=== PATIENT | female | born 1950 | race Two or more races ===

== ENCOUNTER 2019-02-23 19:39 | Emergency (ER) | payer OTHER ==
[~2019-02-23] VITALS: Ht 157.5 cm; Wt 49.9 kg
[2019-02-23 19:46] VITALS: BP 154/86
--- NOTE | 2019-02-23 19:53 | NUR ---
PT AMBULATED TO BED 8 WITH SON
--- NOTE | 2019-02-23 19:53 | NUR ---
68 Y/O FEMALE BIB C/O COUGH. PATIENT WAS REFERRED TO BY URGENT CARE. PATIENT STATES, "I HAVE THIS REAL BAD COUGH; IT'S REALLY DRY. I HAVEPNEUMONIA". LUNG SOUNDS CLEAR DIMINISHED ON LUNG WILD. NO LABORED BREATHING NOTED AT THIS TIME. ERMD MADE AWARE. SIDE RAILSX1. PLACED ON PULSE OXIMETER. 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
--- NOTE | 2019-02-23 20:23 | NUR ---
XRAY AT BEDSIDE
--- NOTE | 2019-02-23 21:11 | NUR ---
Dr. Esteban examining patient.
[2019-02-23 21:48] VITALS: BP 154/86
--- NOTE | 2019-02-23 21:49 | NUR ---
Patient discharged with v/s stable. Written and verbal after care instructions given and explained. Patient alert, oriented and verbalized understanding of instructions. Ambulatory with steady gait. All questions addressed prior to discharge. ID band removed. Patient advised to follow up with PMD. Rx of promethazine given. Patient educated on indication of medication including possible reaction and side effects. Opportunity to ask questions provided and answered.
== END 2019-02-23 21:49 | disposition home or self-care (01) ==
LOC: MED 19:39
DX: R05 Cough (principal); R06.02 Shortness of breath
CPT/HCPCS: 71045; 99283; Q0092

== ENCOUNTER 2021-02-19 11:28 | Inpatient (IN) | payer OTHER, SELFPAY ==
[~2021-02-19] VITALS: Ht 154.9 cm; Wt 57.6 kg
--- NOTE | 2021-02-19 11:28 | NUR ---
1122 BIBA ALS TO ER BED 1
[2021-02-19 11:29] VITALS: BP 124/65
[2021-02-19] MEDS ORDERED: NACL 0.9% 1,000 ML IV SCH (11:35)
[2021-02-19] MEDS ORDERED: cefTRIAXone 1,000 MG in DEXT 5% MINI-BAG PLUS 50 ML IV ONE (11:35)
[2021-02-19] MEDS ORDERED: cefTRIAXone 1,000 MG VIAL ONE (11:38)
--- NOTE | 2021-02-19 11:38 | NUR ---
70 Y/O F BIBA FROM HOME, C/O WEAKNESS, SOB FOR PAST 2 DAYS. PT TESTED POSITIVE FOR COVID 2 DAYS AGO, ALSO TESTED POSITIVE. FAMILY EXPOSED AT HOME. DENIES N/V/D; SKIN IS PINK/WARM/DRY; AAOX4, AMBULATES WITH ASSIST; LUNGS WHEEZING BL; HR EVEN AND TACHY; PATIENT STATES PAIN OF 0/10 AT THIS TIME; PATIENT POSITIONED FOR COMFORT; HOB ELEVATED; BEDRAILS UP X2; BED DOWN. ER MD MADE AWARE OF PT STATUS. PMH: COPD, CA MULTIPLE MYELOMA NKA MED: ALBUTEROL
--- NOTE | 2021-02-19 12:02 | NUR ---
X-Ray at bedside.
[2021-02-19 12:05] LABS: HEMOGLOBIN 14.1 g/dL (12.0-16.0); LYMPHOCYTES # (AUTO) 0.1 K/uL (2.5-16.5); MEAN CORPUSCULAR HEMOGLOBIN 32 pg (27-31); MEAN CORPUSCULAR HGB CONC 34 g/dL (33-37); MEAN CORPUSCULAR VOLUME 93.8 fL (80-94); MONOCYTES # (AUTO) 0.1 K/uL (0.8-1.0); NEUTROPHILS # (AUTO) 2.2 K/uL (1.8-7.7); NEUTROPHILS % (AUTO) 90.8 % (42.2-75.2); WHITE BLOOD COUNT (AUTO) 2.4 K/uL (4.8-10.8)
[2021-02-19 12:14] LABS: BASOPHILS % (AUTO) 0.3 % (0.0-2.0); HEMATOCRIT 41.8 % (36-48); LYMPHOCYTES % (AUTO) 5.7 % (20.5-51.1); MONOCYTES % (AUTO) 3.2 % (1.7-9.3); PLATELET COUNT (AUTO) 207 K/uL (140-450); RED BLOOD CELL COUNT(AUTO) 4.45 MIL/uL (4.20-5.40); RED CELL DISTRIBUTION WIDTH 16.7 % (11.6-13.7)
--- NOTE | 2021-02-19 12:20 | NUR ---
NOVEL AND MARA SWABBED AT THIS TIME
[2021-02-19 12:24] LABS: POTASSIUM 3.5 mmol/L (3.5-5.1)
[2021-02-19 12:25] LABS: ALBUMIN 2.9 g/dL (3.4-5.0); ANION GAP 12.9 (8-16); CARBON DIOXIDE 26.6 mmol/L (21-32); CREATININE 0.8 mg/dL (0.6-1.3); TOTAL BILIRUBIN 0.6 mg/dL (0.0-1.0)
--- NOTE | 2021-02-19 12:48 | NUR ---
DR. BHARDWAJ AND DALTON DUDLEY BEDSIDE SPEAKING WITH PT AND PT FAMILY
[2021-02-19] MEDS ORDERED: UMEC1POW IH (13:24)
[2021-02-19] MEDS ORDERED: POMA2CAP PO (13:24)
[2021-02-19] MEDS ORDERED: DEXA4TAB5 PO (13:24)
[2021-02-19] MEDS ORDERED: DARA15VI SQ (13:24)
[2021-02-19] MEDS ORDERED: [UNRECOGNIZED DRUG - REMARK] (13:36)
[2021-02-19] MEDS ORDERED: MAG SULF 2000 MG/WATER PREMIX 50 ML IV PRN (15:05)
[2021-02-19] MEDS ORDERED: POTASSIUM CHLORIDE 10 MEQ TABER PO PRN (15:05)
[2021-02-19] MEDS ORDERED: MAGNESIUM OXIDE 400 MG TAB PO PRN (15:05)
[2021-02-19] MEDS ORDERED: ONDANSETRON 4 MG/2 ML VIAL IVP PRN (15:05)
[2021-02-19] MEDS ORDERED: KCL 20 MEQ/WATER INJ PREMIX 200 ML IV PRN (15:05)
[2021-02-19] MEDS ORDERED: remdesivir COMMUNICATION ORDER 1 EA MISC MC PRN (15:10)
--- NOTE | 2021-02-19 15:41 | NUR ---
RECEIVED REPORT FROM ER NURSE, PATIENT 70 FEMALE WAS ADMITTED DUE TO SHORTNESS OF BREATH, DX: COVID 19 PNEUMONIA, PATIENT HAVE MULTIPLE MYELOMA ON HISTORY AND SHE IS UNDER CHEMOTHERAPY , PATIENT IS ON MODIFIED CODE STATUS ANS HAS NO KNOWN ALLERGY, SHE IS RECEIVING O2 NASAL CANULA AND HER SAT 100%. WAITING TO RECEIVE THE PATIENT
[2021-02-19] MEDS ORDERED: remdesivir CLINICAL MONITORING 1 EA MISC MC PRN (15:45)
--- NOTE | 2021-02-19 15:57 | NUR ---
Patient will be admitted to care of KATHIE NICHOLSON. Admited to TELEMETRY. Will go to room 118A. Belongings list completed. Report to RAUL DUDLEY.
[2021-02-19] MEDS ORDERED: AZITHROMYCIN 500 MG in DEXTROSE 5% 250 ML IV SCH (16:00)
--- NOTE | 2021-02-19 16:21 | NUR ---
RECEIVED PATIENT FROM ER , PATIENT 70 FEMALE WAS ADMITTED DUE TO SHORTNESS OF BREATH, DX: COVID 19 PNEUMONIA, PATIENT HAVE MULTIPLE MYELOMA ON HISTORY AND SHE IS UNDER CHEMOTHERAPY , HAS NO KNOWN ALLERGY, SHE IS RECEIVING O2 NASAL CANULA AND HER SAT 97%. PATIENT IS AX4, NO SOD NOTED, BREATHING EVEN UNLABORED, PATIENT HAS AN IV ON RIGHT AC. PATIENT CAN AMBULATE, SKIN INTACT, ALL SAFETY MEASURERS ON PLACE CALLS LIGHT WITHIN REACH
[2021-02-19] MEDS: DEXAMETHASONE 10 MG/ML VIAL IVP SCH (16:47)
[2021-02-19 17:00] VITALS: BP 116/64
[2021-02-19] MEDS ORDERED: REMDESIVIR. 200 MG in NACL 0.9% 100 ML IV SCH (17:00)
--- NOTE | 2021-02-19 18:48 | NUR ---
PATIENT IN BED NO COMPLAINS NO SOD NOTED, WATCHING HIS PHONE ALL SAFETY MEASURES IN PLACE , CALLS LIGHT WITHIN REACH
--- NOTE | 2021-02-19 19:20 | NUR ---
REPORT GIVEN TO MARINE SAFETY OFFICER NURSSE
[2021-02-19 20:00] VITALS: BP 116/56
[2021-02-19] MEDS: AZITHROMYCIN 500 MG in DEXTROSE 5% 250 ML IV SCH (21:54)
[2021-02-20] VITALS: BP 99/44
[2021-02-20 04:00] VITALS: BP 108/52
[2021-02-20 06:50] LABS: HEMATOCRIT 36.6 % (36-48); HEMOGLOBIN 12.5 g/dL (12.0-16.0); MEAN CORPUSCULAR HEMOGLOBIN 32 pg (27-31); MEAN CORPUSCULAR HGB CONC 34 g/dL (33-37); MEAN CORPUSCULAR VOLUME 93.4 fL (80-94); PLATELET COUNT (AUTO) 192 K/uL (140-450); RED BLOOD CELL COUNT(AUTO) 3.91 MIL/uL (4.20-5.40); RED CELL DISTRIBUTION WIDTH 16.7 % (11.6-13.7)
[2021-02-20 07:13] LABS: ALBUMIN 2.4 g/dL (3.4-5.0); ANION GAP 11.7 (8-16); CARBON DIOXIDE 26.4 mmol/L (21-32); CHOL/HDL RATIO 2.2 (1-4.5); CREATININE 0.6 mg/dL (0.6-1.3); POTASSIUM 4.1 mmol/L (3.5-5.1); TOTAL BILIRUBIN 0.4 mg/dL (0.0-1.0)
--- NOTE | 2021-02-20 07:30 | NUR ---
RECEIVED REPORT FROM RN WELLNESS RN FOR CONTINUITY OF CARE. PATIENT IS AWAKE AND LAYING IN BED. NO S/S OF DISTRESS. NO COMPLAINTS OF PAIN. ALL SAFETY PRECAUTIONS IN PLACE.
[2021-02-20 07:47] LABS: WHITE BLOOD COUNT (AUTO) 1.4 K/uL (4.8-10.8)
[2021-02-20 07:48] LABS: LYMPHOCYTES % (MANUAL) 5 % (20-46); MONOCYTES % (MANUAL) 4 % (5-12)
[2021-02-20 08:00] VITALS: BP 110/54
[2021-02-20] MEDS ORDERED: ENOXAPARIN 40 MG/0.4 ML SYR SUBQ SCH (09:00)
[2021-02-20] MEDS: DEXAMETHASONE 10 MG/ML VIAL IVP SCH (09:36)
--- NOTE | 2021-02-20 09:55 | NUR ---
ADMINISTERED SCHEDULED MEDICATIONS. PATIENT VERBALIZED UNDERSTANDING. NO S/S OF DISTRESS. IV SITE IS AN 18G AT RIGHT AC; PATENT, DRY, INTACT, AND FLUSHING WELL. NO COMPLAINTS OF PAIN. ALL SAFETY PRECAUTIONS IN PLACE.
--- NOTE | 2021-02-20 11:00 | NUR ---
PATIENT'S FAMILY AT WINDOW TO VISIT. PATIENT ABLE TO AMBULATE AND SIT IN CHAIR BY WINDOW. ALL SAFETY PRECAUTIONS IN PLACE.
[2021-02-20 12:00] VITALS: BP 115/70
[2021-02-20] MEDS: ASCORBIC ACID 500 MG TAB PO SCH (12:36)
--- NOTE | 2021-02-20 12:51 | NUR ---
ADMINISTERED SCHEDULED MEDICATION. PATIENT VERBALIZED UNDERSTANDING. ALL SAFETY PRECAUTIONS IN PLACE.
[2021-02-20 16:00] VITALS: BP 105/51
--- NOTE | 2021-02-20 16:30 | NUR ---
PATIENT'S FAMILY VISITING AT WINDOW. PATIENT AMBULATED TO WINDOW WITHOUT DIFFICULTY. ALL SAFETY PRECAUTIONS IN PLACE.
[2021-02-20] MEDS: REMDESIVIR. 100 MG in NACL 0.9% 100 ML IV SCH (17:31)
--- NOTE | 2021-02-20 17:42 | NUR ---
ADMINISTERED SCHEDULED MEDICATION. PATIENT VERBALIZED UNDERSTANDING. ALL SAFETY PRECAUTIONS IN PLACE.
--- NOTE | 2021-02-20 19:59 | NUR ---
Assumed care. A/O x 4. In no acute distress respiratory or otherwise. She is feeling much better. Batteries to the tele box have been changed. The dinner trays have been cleared from the table. Water has been provided. Will continue to monitor.
[2021-02-20 20:00] VITALS: BP 113/50
[2021-02-20] MEDS: APIXABAN 2.5 MG TAB PO SCH (20:50)
[2021-02-20] MEDS: AZITHROMYCIN 500 MG in DEXTROSE 5% 250 ML IV SCH (20:52)
[2021-02-21] VITALS: BP 93/57
[2021-02-21 04:00] VITALS: BP 120/64
[2021-02-21 06:28] LABS: EOSINOPHILS % (AUTO) 0.1 % (0.0-4.0); HEMATOCRIT 36.4 % (36-48); HEMOGLOBIN 12.3 g/dL (12.0-16.0); LYMPHOCYTES # (AUTO) 0.2 K/uL (2.5-16.5); LYMPHOCYTES % (AUTO) 7.8 % (20.5-51.1); MEAN CORPUSCULAR HEMOGLOBIN 32 pg (27-31); MEAN CORPUSCULAR HGB CONC 34 g/dL (33-37); MEAN CORPUSCULAR VOLUME 93.4 fL (80-94); MONOCYTES # (AUTO) 0.1 K/uL (0.8-1.0); MONOCYTES % (AUTO) 4.7 % (1.7-9.3); NEUTROPHILS # (AUTO) 1.8 K/uL (1.8-7.7); NEUTROPHILS % (AUTO) 87.4 % (42.2-75.2); PLATELET COUNT (AUTO) 206 K/uL (140-450); RED BLOOD CELL COUNT(AUTO) 3.89 MIL/uL (4.20-5.40); RED CELL DISTRIBUTION WIDTH 16.6 % (11.6-13.7); WHITE BLOOD COUNT (AUTO) 2.1 K/uL (4.8-10.8)
[2021-02-21 07:00] LABS: ALBUMIN 2.4 g/dL (3.4-5.0); ANION GAP 12.1 (8-16); CARBON DIOXIDE 24.6 mmol/L (21-32); CREATININE 0.6 mg/dL (0.6-1.3); POTASSIUM 3.7 mmol/L (3.5-5.1); TOTAL BILIRUBIN 0.4 mg/dL (0.0-1.0)
--- NOTE | 2021-02-21 07:53 | NUR ---
In no acute distress, respiratory or otherwise. She ambulates to the bathroom without a probel. Care has been endorsed to AM LUIS ENRIQUE Colindres.
[2021-02-21 08:00] VITALS: BP 107/50
--- NOTE | 2021-02-21 08:12 | NUR ---
RECEIVED REPORT FROM CRULLER MAKER MACHINE RN FOR CONTINUITY OF CARE. PATIENT IS AWAKE AND LAYING IN BED. AX4 NO S/S OF DISTRESS. NO COMPLAINTS OF PAIN. ALL SAFETY PRECAUTIONS IN PLACE.CALLS LIGHT WITHIN RECH
[2021-02-21] MEDS: ASCORBIC ACID 500 MG TAB PO SCH (09:13)
[2021-02-21] MEDS: APIXABAN 2.5 MG TAB PO SCH ×2 (09:16→20:44)
[2021-02-21] MEDS: DEXAMETHASONE 10 MG/ML VIAL IVP SCH (09:17)
--- NOTE | 2021-02-21 09:58 | NUR ---
PATIENT HAS BEEN SCREENED AND CATEGORIZED MODERATE NUTRITION RISK. PATIENT WILL BE SEEN WITHIN 3-5 DAYS OF ADMISSION. 02/22/21-02/24/21 REVIEWED BY LU[address]NA DU[address]
--- NOTE | 2021-02-21 10:11 | NUR ---
PATIENT IN BED NO COMPLAINS NO SOD NOTED, GOT MORNING MEDICATION TOLERATED WELL, ALL SAFETY MEASURES ON PLACE, CALLS LIGHT WITHIN REACH
[2021-02-21 12:00] VITALS: BP 109/60
[2021-02-21 12:04] LABS: LACTATE DEHYDROGENASE 305 IU/L (0-214)
--- NOTE | 2021-02-21 12:24 | NUR ---
PATIENT IN BED NO COMPLAINS NO SOD NOTED, ALL SAFETY MEASURES ON PLACE, CALLS LIGHT WITHIN REACH
--- NOTE | 2021-02-21 13:58 | NUR ---
PATIENT IN BED NO COMPLAINS NO SOD NOTED, ALL SAFETY MEASURES ON PLACE, CALLS LIGHT WITHIN REACH
--- NOTE | 2021-02-21 14:56 | NUR ---
DC PLANNING: THE PATIENT ADMITTED FROM HOME THROUGH THE ED WITH C/O WORSENING COVID S/S AFTER BEING DIAGNOSED WITH COVID. S/S OF HYPOXIA AND TACHYCARDIA, CXR SHOWED PATCHY INFILTRATES. STARTED ON ROCEPHIN, ZITHROMAX, REMDESIVIR AND DECADRON. BLOOD AND SPUTUM CULTURES ORDERED, VERIFICATION SPECIALIST CONSULT. H/O MULTIPLE MYELOMA AND COPD. CM ATTEMPTED TO REACH THE PATIENT, HER SPOUSE AND DAUGHTER BY PHONE TO DISCUSS DISCHARGE NEEDS, MESSAGE LEFT FOR THE PATIENTS . CM WILL FOLLOW FOR NEEDS. Addendum: 02/22/21 at 0846 by Nancy Hughes CM DC PLANNING: AUTH NUMBER FOR ADMISSION PER VINNIE AT [facility] IS [id number]. PJ WILL FOLLOW FOR NEEDS. Addendum: 02/22/21 at 0904 by Nancy Hughes CM DC PLANNING: UPDATED CLINICAL REVIEW GIVEN TO [facility] FOR [facility]. CM WILL FOLLOW FOR NEEDS. Addendum: 02/22/21 at 1313 by Nancy Hughes CM DC PLANNING: PJ SPOKE WITH THE PATIENTS DAUGHTER TAMMI WHO STATES SHE IS THE PRIMARY CONTACT. THE PATIENTS AALIYAH ALSO HAS COVID AND IS AT [facility] TODAY RECEIVING MEDICATION FOR TREATMENT. THE PATIENT LIVES IN A SINGLE STORY HOUSE WITH HER AND DAUGHTER AND IS INDEPENDENT IN ALL ACTIVITIES. SHE SEES HER PCP NEEDED AND IS FOLLOWED BY DR VALETNINE AT THE [facility] OFFICE. SHE HAS NOT HAD HOME HEALTH IN THE PAST AND HAS DME OF WC AND FWW. CM ENDORSED THAT THE PATIENT WILL BE EVALUATED FOR HOME O2 AND THAT IF NEEDED CM WILL WORK WITH THE PATIENT INSURANCE TO SET IT UP. DC PLAN IS TO RETURN HOME WITH FAMILY, CM WILL FOLLOW FOR NEEDS. Addendum: 02/22/21 at 1615 by Nancy Hughes CM DC PLANNING: UPDATED CLINICALS FAXED TO [facility] AT [facility]. CM WILL FOLLOW NEEDED. Addendum: 02/22/21 at 1658 by Nancy Hughes CM DC PLANNING: ORDER RECEIVED FOR HOME O2, FAXED TO [facility] [place] AT [facility]. CM WILL FOLLOW FOR NEEDS. Addendum: 02/23/21 at 0839 by Nancy Hughes CM DC PLANNING: PJ SPOKE WITH VINNIE AT [facility], [facility] IS THE CONTRACTED VENDOR FOR HOME O2, CM WILL WAIT FOR RA SATS BEFORE PROCEEDING WITH SET UP. CM WILL FOLLOW FOR NEEDS. Addendum: 02/23/21 at 1534 by Nancy Hughes CM DC PLANNING: REFERRAL FOR HOME O2 FAXED TO [facility], PJ SPOKE WITH CHARLES AT [facility] ([phone]) TO CONFIRM THE PATIENTS DAUGHTERS PHONE NUMBER. PER CHARLES HE HAS BEEN UNABLE TO REACH HER AND WILL NEED TO SPEAK WITH HER BEFORE DELIVERING O2. PJ ALSO LEFT A MESSAGE FOR THE PATIENTS DANETTE CADENA REGARDING DELIVERY AND WILL FOLLOW FOR NEEDS. Addendum: 02/23/21 at 1608 by Nancy Hughes CM DC PLANNING: PJ SPOKE WITH THE PATIENTS DANETTE CADENA REGARDING O2 DELIVERY, STATES THAT SHE CALLED [facility] AND IS WAITING FOR A CALL BACK TO SCHEDULE DELIVERY. PJ WILL FOLLOW FOR NEEDS. Addendum: 02/24/21 at 1048 by Nancy Hughes CM DC PLANNING: PJ SPOKE WITH THE PATIENTS DAUGHTER TO CONFIRM O2 DELIVERY BY [facility], O2 IS AT THE HOUSE. PJ REMINDED TAMMI TO BRING THE O2 TANK AND O2 TUBING WHEN SHE COMES TO THE HOSPITAL, ENDORSED THAT THE MD HAS NOT YET ROUNDED AND THERE IS NOT A DC ORDER. PJ WILL FOLLOW UP FOR NEEDS. Addendum: 02/24/21 at 1206 by Nancy Hughes CM DC PLANNING: ORDER FOR HOME HEALTH F/U FAXED TO [facility] [place] AT [facility] WHO STATES HE WILL SET IT UP. PJ WILL FOLLOW FOR NEEDS. Addendum: 02/25/21 at 1406 by Nancy Hughes CM DC PLANNING: [facility] AT [facility], THE PATIENT IS SET UP WITH [employer] [facility], . CM WILL FOLLOW NEEDED.
[2021-02-21 16:00] VITALS: BP 120/60
--- NOTE | 2021-02-21 16:21 | NUR ---
PATIENT IN BED NO COMPLAINS NO SOD NOTED, ALL SAFETY MEASURES ON PLACE, CALLS LIGHT WITHIN REACH
[2021-02-21] MEDS: REMDESIVIR. 100 MG in NACL 0.9% 100 ML IV SCH (16:51)
--- NOTE | 2021-02-21 17:46 | NUR ---
PATIENT IN BED NO COMPLAINS NO SOD NOTED, ALL SAFETY MEASURES ON PLACE, CALLS LIGHT WITHIN REACH
--- NOTE | 2021-02-21 19:50 | NUR ---
FULL BEDSIDE REPORT GIVEN TO CURRENCY EXAMINER NURSE
--- NOTE | 2021-02-21 19:51 | NUR ---
RECEIVED REPORT FROM AM SHIFT NURSE FOR CONTINUITY OF CARE. PT ON BED, AWAKE A&OX4. NO S/S OF DISTRESS. RESPIRATIONS EVEN AND UNLABORED. ON NC 3L. PT IS AMBULATORY. SKIN IS WARM, DRY AND INTACT. IV ON RIGHT AC 18G SALINE LOCKED. NO COMPLAINTS OF PAIN AT THIS TIME. CALL LIGHT WITHIN REACH. ALL SAFETY MEASURES IN PLACE. WILL CONTINUE TO MONITOR.
[2021-02-21 20:00] VITALS: BP 127/65
[2021-02-21] MEDS: AZITHROMYCIN 500 MG in DEXTROSE 5% 250 ML IV SCH (20:42)
--- NOTE | 2021-02-21 20:42 | NUR ---
SCHEDULED MEDS GIVEN ORDERED. PT TOLERATED WELL. WILL CONTINUE TO MONITOR.
[2021-02-21] MEDS: ACETAMINOPHEN 325 MG TAB PO PRN (21:10)
--- NOTE | 2021-02-21 21:10 | NUR ---
PT COMPLAINS OF BACK PAIN AND REQUESTED PAIN MEDS. ADMINISTERED TYLENOL TABLET ORDERED. PT TOLERATED WELL.
--- NOTE | 2021-02-21 23:20 | NUR ---
CHECKED ON PT, NO S/S OF DISTRESS. O2 SAT @96%. NO COMPLAINTS AT THIS TIME. CALL LIGHT WITHIN REACH. WILL CONTINUE TO MONITOR.
[2021-02-22] VITALS: BP 114/56
--- NOTE | 2021-02-22 01:35 | NUR ---
MADE ROUNDS ON PT, SLEEPING. NO S/S OF DISTRESS. BREATHING IS SYMMETRICAL. CALL LIGHT WITHIN REACH. ALL SAFETY MEASURES IN PLACE.
--- NOTE | 2021-02-22 03:50 | NUR ---
CHECKED ON PT. NO S/S OF DISTRESS. O2 SAT @99%. ALL SAFETY MEASURES IN PLACE. WILL CONTINUE TO MONITOR.
[2021-02-22 04:00] VITALS: BP 119/52
--- NOTE | 2021-02-22 06:34 | NUR ---
PT STILL SLEEPING, NO S/S OF DISTRESS. RESPIRATIONS EVEN AND UNLABORED. CALL LIGHT WITHIN REACH.
[2021-02-22 07:15] LABS: BASOPHILS % (AUTO) 0.4 % (0.0-2.0); EOSINOPHILS % (AUTO) 0.1 % (0.0-4.0); HEMATOCRIT 36.2 % (36-48); HEMOGLOBIN 12.3 g/dL (12.0-16.0); LYMPHOCYTES # (AUTO) 0.2 K/uL (2.5-16.5); LYMPHOCYTES % (AUTO) 4.8 % (20.5-51.1); MEAN CORPUSCULAR HEMOGLOBIN 32 pg (27-31); MEAN CORPUSCULAR HGB CONC 34 g/dL (33-37); MONOCYTES # (AUTO) 0.1 K/uL (0.8-1.0); NEUTROPHILS # (AUTO) 3.1 K/uL (1.8-7.7); NEUTROPHILS % (AUTO) 92.7 % (42.2-75.2); PLATELET COUNT (AUTO) 193 K/uL (140-450); RED BLOOD CELL COUNT(AUTO) 3.89 MIL/uL (4.20-5.40); RED CELL DISTRIBUTION WIDTH 16.2 % (11.6-13.7); WHITE BLOOD COUNT (AUTO) 3.4 K/uL (4.8-10.8)
--- NOTE | 2021-02-22 07:40 | NUR ---
ENDORSED TO AM SHIFT NURSE FOR CONTINUITY OF CARE. PT IS STABLE.
--- NOTE | 2021-02-22 07:41 | NUR ---
RECEIVED REPORT FROM LOG CHECK SCALER RN FOR CONTINUITY OF CARE. PATIENT IS AWAKE AND LAYING IN BED. AX4 NO S/S OF DISTRESS. NO COMPLAINTS OF PAIN. ALL SAFETY PRECAUTIONS IN PLACE.CALLS LIGHT WITHIN RECH
[2021-02-22 08:00] VITALS: BP 136/59
[2021-02-22 08:30] LABS: ALBUMIN 2.3 g/dL (3.4-5.0); BILIRUBIN,DIRECT 0.1 mg/dL (0.0-0.3); TOTAL BILIRUBIN 0.4 mg/dL (0.0-1.0)
[2021-02-22] MEDS: DEXAMETHASONE 10 MG/ML VIAL IVP SCH (09:08)
[2021-02-22] MEDS: ASCORBIC ACID 500 MG TAB PO SCH (09:08)
[2021-02-22] MEDS: APIXABAN 2.5 MG TAB PO SCH ×2 (09:13→20:38)
--- NOTE | 2021-02-22 10:30 | NUR ---
PATIENT IN BED NO COMPLAINS NO SOD NOTED, GOT MORNING MEDICATION TOLERATED WELL, PATIENT IV INFILTRATED, IV REMOVED, SKIN INTACT, NEW IV INSERTED ON RIGHT HAND ALL SAFETY MEASURES ON PLACE, CALLS LIGHT WITHIN REACH
[2021-02-22 12:00] VITALS: BP 104/49
--- NOTE | 2021-02-22 13:17 | NUR ---
PATIENT IN BED NO COMPLAINS NO SOD NOTED, ALL SAFETY MEASURES ON PLACE, CALLS LIGHT WITHIN REACH
[2021-02-22 16:00] VITALS: BP 121/68
--- NOTE | 2021-02-22 16:30 | NUR ---
PATIENT IN BED NO COMPLAINS, NO SOD NOTED, FAMILY CALLED, DAUGHTER TAMMI, ALL QUESTIONS WERE ANSWERED DENIES ANY PAIN, ALL SAFETY MEASURES ON PLACE CALLS LIGHT WITHIN REACH
[2021-02-22] MEDS: REMDESIVIR. 100 MG in NACL 0.9% 100 ML IV SCH (17:18)
--- NOTE | 2021-02-22 17:33 | NUR ---
PATIENT IN BED NO COMPLAINS, NO SOD NOTED, DENIES ANY PAIN, ALL SAFETY MEASURES ON PLACE CALLS LIGHT WITHIN REACH
--- NOTE | 2021-02-22 19:38 | NUR ---
FULL BEDSIDE REPORT GIVEN TO RAMP SERVICE MAN NURSE
--- NOTE | 2021-02-22 19:39 | NUR ---
RECEIVED REPORT FROM AM SHIFT NURSE FOR CONTINUITY OF CARE. PT IS AWAKE, A&OX4. NO S/S OF DISTRESS. RESPIRATIONS EVEN AND UNLABORED. ON 3L OF O2 VIA NC. NO COMPLAINTS OF PAIN. SKIN IS WARM, DRY AND NON DIAPHORETIC. PT IS AMBULATORY. IV ON RIGHT HAND 22G SALINE LOCKED. CALL LIGHT WITHIN REACH. ALL SAFETY MEASURES IN PLACE. WILL CONTINUE TO MONITOR.
[2021-02-22 20:00] VITALS: BP 119/66
[2021-02-22] MEDS: AZITHROMYCIN 500 MG in DEXTROSE 5% 250 ML IV SCH (20:36)
--- NOTE | 2021-02-22 20:36 | NUR ---
SCHEDULED MEDICATIONS ADMINISTERED ORDERED. PT TOLERATED WELL. WILL CONTINUE TO MONITOR.
--- NOTE | 2021-02-22 22:45 | NUR ---
MADE ROUNDS ON PT. NO S/S OF DISTRESS. RESPIRATIONS EVEN AND UNLABORED. NO COMPLAINTS MADE. CALL LIGHT WITHIN REACH. ALL SAFETY MEASURES IN PLACE.
[2021-02-23] VITALS: BP 110/56
--- NOTE | 2021-02-23 01:05 | NUR ---
CHECKED ON PT, NO S/S OF DISTRESS. CHEST RISE AND FALL SYMMETRICAL. ALL SAFETY PRECAUTIONS IN PLACE. WILL CONTINUE TO MONITOR.
--- NOTE | 2021-02-23 03:15 | NUR ---
MADE ROUNDS ON PT, NO S/S OF DISTRESS. CHEST RISE AND FALL SYMMETRICAL. CALL LIGHT WITHIN REACH. ALL SAFETY MEASURES IN PLACE.
[2021-02-23 04:00] VITALS: BP 118/67
--- NOTE | 2021-02-23 05:30 | NUR ---
MADE ROUNDS ON PT, NO S/S OF DISTRESS. CHEST RISE AND FALL SYMMETRICAL. CALL LIGHT WITHIN REACH. WILL CONTINUE TO MONITOR.
[2021-02-23 06:25] LABS: LACTATE DEHYDROGENASE 305 IU/L (0-214); LD1 FRACTION 17 % (17-32); LD2 FRACTION 35 % (25-40); LD3 FRACTION 30 % (17-27); LD4 FRACTION 13 % (5-13)
[2021-02-23 07:13] LABS: HEMOGLOBIN 11.8 g/dL (12.0-16.0); LYMPHOCYTES # (AUTO) 0.2 K/uL (2.5-16.5); MEAN CORPUSCULAR HEMOGLOBIN 32 pg (27-31); MEAN CORPUSCULAR HGB CONC 35 g/dL (33-37); MEAN CORPUSCULAR VOLUME 91.9 fL (80-94); MONOCYTES # (AUTO) 0.2 K/uL (0.8-1.0); MONOCYTES % (AUTO) 2.9 % (1.7-9.3); NEUTROPHILS # (AUTO) 7.5 K/uL (1.8-7.7); NEUTROPHILS % (AUTO) 95.1 % (42.2-75.2); PLATELET COUNT (AUTO) 200 K/uL (140-450); RED BLOOD CELL COUNT(AUTO) 3.69 MIL/uL (4.20-5.40); RED CELL DISTRIBUTION WIDTH 15.8 % (11.6-13.7); WHITE BLOOD COUNT (AUTO) 7.9 K/uL (4.8-10.8)
[2021-02-23 07:22] LABS: ALBUMIN 2.3 g/dL (3.4-5.0); ANION GAP 13.9 (8-16); CARBON DIOXIDE 25.4 mmol/L (21-32); CREATININE 0.6 mg/dL (0.6-1.3); MAGNESIUM 1.7 mg/dL (1.8-2.4); POTASSIUM 3.3 mmol/L (3.5-5.1); TOTAL BILIRUBIN 0.5 mg/dL (0.0-1.0)
--- NOTE | 2021-02-23 07:30 | NUR ---
ENDORSED TO AM SHIFT NURSE FOR CONTINUITY OF CARE. PT IS STABLE.
[2021-02-23 08:00] VITALS: BP 100/52
--- NOTE | 2021-02-23 08:30 | NUR ---
PATIENT RESTING IN BED RT AT BEDSIDE. ALL SAFETY MEASURES IN PLACE,
--- NOTE | 2021-02-23 08:35 | NUR ---
PATIENT WAS ORIGINALLY ON 2 LITERS OXYGEN - PLACED PATIENT ON ROOM AIR - SATURATIONS DECREASED TO 77 ON ROOM AIR, PATIENT ACTIVELY COUGHING, PATIENT HAVING DIFFICULTY BREATHING- TURNED OXYGEN BACK ON AND GAVE PATIENT A DUONEB BREATHING TREATMENT - PATIENT DID NOT TOLERATE OXYGEN BEING TURNED OFF WELL - NASAL CANNULA NOW INCREASED AFTER BEING PLACED ON ROOM AIR. RN NOTIFIED OF NEW OXYGEN SETTINGS
[2021-02-23] MEDS ORDERED: ALBUTEROL SULFATE/IPRATROPIU 3 ML SOL IH ONE (08:36)
[2021-02-23] MEDS ORDERED: ALBUTEROL SULFATE/IPRATROPIU 3 ML SOL IH SCH (08:40)
[2021-02-23] MEDS: APIXABAN 2.5 MG TAB PO SCH ×2 (09:15→21:25)
[2021-02-23] MEDS: DEXAMETHASONE 10 MG/ML VIAL IVP SCH (09:15)
[2021-02-23] MEDS: ASCORBIC ACID 500 MG TAB PO SCH (09:16)
--- NOTE | 2021-02-23 09:28 | NUR ---
PATIENT GUIDED THROUGH BREATHING EXERCISES, TAUGHT STRESS REDUCTION TECHNIQUES AND GUIDED THROUGH MEDITATION . PT RESTING IN BED WITH CONCERNS FOR HER FAMILY'S WELL BEING . PT GIVEN MEDICATIONS PER MD ORDER. PT EDUCATED AND VERBALIZED UNDERSTANDING . PT ASSISTED WITH MEAL TRAY SET UP . ALL SAFETY MEASURES IN PLACE.
--- NOTE | 2021-02-23 09:31 | NUR ---
PT ON 6 L NC , PT ADVISED TO TAKE 10 DEEP BREATHS PER HR
--- NOTE | 2021-02-23 11:15 | NUR ---
GIFT BAG WITH MAGAZINE LOTION AND WIPES GIVEN TO PATIENT . PT AMBULATED TO RESTROOM DESATURATED TO 86% GUIDED THROUGH BREATHING , PATIENT AMBULATED BACK TO BED , PLACED IN PRONE POSITION NOW AT 93% ON 6 L NC . ALL SAFETY MEASURES ARE IN PLACE.
--- NOTE | 2021-02-23 11:16 | NUR ---
PATIENT OFFERED BEDSIDE COMMODE OR BEDPAN , PATIENT REFUSED AND STATES SHE NEEDED TO AMBULATE TO RESTROOM DOES NOT WANT ALTERNATIVES. PATIENT EDUCATED WITH RISK, MORBIDITY AND MORTALITY RATES DUE TO HER CONDITION. PATIENT STILL REFUSED EXTENSION TO O2 PROVIDED, PATIENT SUPERVISED WHEN USING RESTROOM AND 02% MONITORED AT ALL TIMES. ALL SAFETY MEASURES ARE IN PLACE.
[2021-02-23 12:00] VITALS: BP 105/53
--- NOTE | 2021-02-23 12:10 | NUR ---
PT DID ORAL CARE TOLERATED WELL , PLACED BACK IN PRONE POSITION
--- NOTE | 2021-02-23 13:43 | NUR ---
PT ROUNDED ON , PRONE POSITION 94% BREATHING 18 , PATIENT RELAXED BREATHING UNLABORED SYMMETRICAL . ALL SAFETY MEASURES ARE IN PLACE. BELONGINGS WITHIN REACH .
[2021-02-23] MEDS ORDERED: LORazepam 0.5 MG TAB PO PRN (15:35)
[2021-02-23 16:00] VITALS: BP 122/78
--- NOTE | 2021-02-23 17:09 | NUR ---
DAUGHTER CALLED REGARDING CARE AND PLAN. Tien CLAIMED IT IS OKAY TO GIVE DAUGHTER INFORMATION . FAMILY MEMBER UPDATED ON CARE. NO FURTHER QUESTIONS OR CONCERNS AT THIS TIME . FAMILY MEMBER STILL HAS NOT RECEIVED HOME 02%
[2021-02-23] MEDS: REMDESIVIR. 100 MG in NACL 0.9% 100 ML IV SCH (17:12)
--- NOTE | 2021-02-23 17:12 | NUR ---
MEDIATIONS GIVEN PER MD ORDER. PT EDUCATED AND VERBALIZED UNDERSTANDING , PT O2% 91
--- NOTE | 2021-02-23 19:14 | NUR ---
PATIENT ENDORSED TO PRECISION LENS POLISHER NURSE. PT UP AMBULATING , PT EDUCATED TO GO BACK TO BED . ALL SAFETY MEASURES ARE IN PLACE.
--- NOTE | 2021-02-23 19:15 | NUR ---
RECEIVED REPORT FROM AM NURSE FOR CONTINUITY CARE. PT STABLE.
--- NOTE | 2021-02-23 19:35 | NUR ---
PT AxOx4. SHOWS NO SIGNS OF DISTRESS. ON 3L OF NC. NO FLUIDS RUNNING AND HAS A 22G R HAND IV. PT LAYING IN BED CONNECTED TO SPO2 MONITOR. PT DENIES OF ANY PAIN. SAFETY MEASURES IN PLACE. WILL CONTINUE TO MONITOR.
[2021-02-23 20:00] VITALS: BP 132/52
--- NOTE | 2021-02-23 21:25 | NUR ---
PT RECEIVED ELIQUIS ORDERED AND TOLERATED IT WELL. PT REQUESTED TO BE LEFT ALONE TO REST. SAFETY MEASURES IN PLACE. WILL CONTINUE TO MONITOR.
--- NOTE | 2021-02-23 21:30 | NUR ---
PT SEEN AND ASSESSED. FOUND PT ON 5L NC. SPO2 100%. TITRATED O2 TO 2L NC. SPO2 925 TO 94%. RN NOTIFIED. WILL CONTINUE TO MONITOR
[2021-02-23 21:49] LABS: LACTATE DEHYDROGENASE 318 IU/L (0-214)
[2021-02-24] VITALS: BP 136/85
--- NOTE | 2021-02-24 00:24 | NUR ---
PT IN BED SLEEPING. ON 2L NC. NO SIGNS OF DISTRESS. CHEST IS RISE AND FALL SYMMETRICALLY. WILL CONTINUE TO MONITOR.
--- NOTE | 2021-02-24 02:04 | NUR ---
PT IN BED SLEEPING. SHOWS NO SIGNS OF DISTRESS. ON 2L NC. CALL LIGHT WITHIN REACH. WILL CONTINUE TO MONITOR.
--- NOTE | 2021-02-24 03:35 | NUR ---
PT RECEIVED POTASSIUM AND MAGNESIUM DUE TO LOW LAB VALUES. PT TOLERATED IT WELL. SAFETY MEASURES IN PLACE. WILL CONTINUE TO MONITOR.
[2021-02-24 04:00] VITALS: BP 112/57
--- NOTE | 2021-02-24 05:45 | NUR ---
PT IN BED SLEEPING. ON 2L NC. SHOWS NO SIGNS OF DISTRESS. CALL LIGHT WITHIN REACH. WILL CONTINUE TO MONITOR.
--- NOTE | 2021-02-24 07:27 | NUR ---
ENDORSED REPORT TO AM NURSE FOR CONTINUITY OF CARE. PT 02 86. INCREASED OXYGEN TO 3L NC.
--- NOTE | 2021-02-24 07:55 | NUR ---
ALL REPORTS WERE GIVEN, TRANSFER OF CARE ENDORSED.
--- NOTE | 2021-02-24 07:56 | NUR ---
RECEIVED PT REPORT BEDSIDE, ALERT ORIENTED X4, NC 3L. BREATHING IS EVEN AND UNLABORED. NO S/S OF DISTRESS, IV IS PATENT AND INTACT. IV SL. PT IS STABLE.
[2021-02-24 08:00] VITALS: BP 111/51
[2021-02-24 08:10] LABS: BASOPHILS % (AUTO) 0.1 % (0.0-2.0); HEMATOCRIT 33.3 % (36-48); HEMOGLOBIN 11.6 g/dL (12.0-16.0); LYMPHOCYTES # (AUTO) 0.1 K/uL (2.5-16.5); LYMPHOCYTES % (AUTO) 1.9 % (20.5-51.1); MEAN CORPUSCULAR HEMOGLOBIN 32 pg (27-31); MEAN CORPUSCULAR HGB CONC 35 g/dL (33-37); MEAN CORPUSCULAR VOLUME 91.3 fL (80-94); MONOCYTES # (AUTO) 0.4 K/uL (0.8-1.0); MONOCYTES % (AUTO) 5.9 % (1.7-9.3); NEUTROPHILS # (AUTO) 6.1 K/uL (1.8-7.7); NEUTROPHILS % (AUTO) 92.1 % (42.2-75.2); PLATELET COUNT (AUTO) 234 K/uL (140-450); RED BLOOD CELL COUNT(AUTO) 3.64 MIL/uL (4.20-5.40); RED CELL DISTRIBUTION WIDTH 16.2 % (11.6-13.7); WHITE BLOOD COUNT (AUTO) 6.6 K/uL (4.8-10.8)
[2021-02-24 08:34] LABS: ALBUMIN 2.3 g/dL (3.4-5.0); ANION GAP 13.9 (8-16); CARBON DIOXIDE 24.2 mmol/L (21-32); CREATININE 0.5 mg/dL (0.6-1.3); MAGNESIUM 2.1 mg/dL (1.8-2.4); POTASSIUM 4.1 mmol/L (3.5-5.1); TOTAL BILIRUBIN 0.4 mg/dL (0.0-1.0)
[2021-02-24] MEDS: DEXAMETHASONE 10 MG/ML VIAL IVP SCH (09:42)
[2021-02-24] MEDS: ASCORBIC ACID 500 MG TAB PO SCH (09:42)
[2021-02-24] MEDS: APIXABAN 2.5 MG TAB PO SCH ×2 (09:43→21:40)
[2021-02-24 12:00] VITALS: BP 110/55
--- NOTE | 2021-02-24 12:00 | NUR ---
PT BREATHING IS EVEN AND UNLABORED. DENIES PAIN. PT IS STABLE. MD AND PT AGREED THAT PT WILL STAY ONE MORE NIGHT IN HOSPITAL FOR OBSERVATION BEFORE DISCHARGE TO HOME.
[2021-02-24 16:00] VITALS: BP 112/58
[2021-02-24 17:49] LABS: LACTATE DEHYDROGENASE 314 IU/L (0-214)
[2021-02-24 18:36] LABS: LACTATE DEHYDROGENASE 311 IU/L (0-214); LD1 FRACTION 16 % (17-32); LD2 FRACTION 38 % (25-40); LD3 FRACTION 30 % (17-27); LD4 FRACTION 12 % (5-13); LD5 FRACTION 4 % (4-20)
--- NOTE | 2021-02-24 19:20 | NUR ---
PT ENDORSED TO RESAW MACHINE OPERATOR FOR CONTINUITY OF CARE.
--- NOTE | 2021-02-24 19:47 | NUR ---
RECEIVED REPORT FROM DAYSHIFT RN FOR CONTINUITY OF CARE. PT AWAKE SITTING UP IN BED EATING DINNER. NO COMPLAINTS OR DISTRESS.
[2021-02-24 20:00] VITALS: BP_SYST 111; BP_SYST 135; BP_DIAS 51; BP_DIAS 65
--- NOTE | 2021-02-24 20:00 | NUR ---
PT IS LYING IN BED WITH O2 3L VIA NASAL CANNULA, VS: 104/49 P- 63 R-16, T-97.7 O2 SAT-95%. R HAND #24G SL FLUSHED AND PATENT. ALL ORDERED PRECAUTIONS IN PLACE.
--- NOTE | 2021-02-24 21:40 | NUR ---
PT GIVEN ORDERED ELIQUIS EDUCATION PROVIDED AT BEDSIDE. PT VERBALIZED UNDERSTANDING. ALL REQUESTED NEEDS ATTENDED AND ALL ORDERED PRECAUTIONS IN PLACE.
[2021-02-25] VITALS: BP 135/65
--- NOTE | 2021-02-25 | NUR ---
PT IN BED ASLEEP SHE CONTINUES ON 3 LITERS VIA N/C V/S FOLLOWS: T 98.1 P 57 R 18 B/P 135/65 02 96%. ALL ORDERED PRECAUTIONS IN PLACE.
[2021-02-25] MEDS: ACETAMINOPHEN 325 MG TAB PO PRN (03:10)
--- NOTE | 2021-02-25 03:30 | NUR ---
PT C/O OF MILD CHEST PAIN FROM COUGHING PT GIVEN TYLENOL 650MG PO, WILL MONITOR FOR EFFECT. ALL ORDERED PRECAUTIONS IN PLACE.
[2021-02-25 04:00] VITALS: BP 143/70
--- NOTE | 2021-02-25 05:30 | NUR ---
PT ASLEEP NO S/S OF PAIN OR DISTRESS NOTED. PT CONTINUES ON 3 LITERS VIA N/C ALL ORDERED PRECAUTIONS IN PLACE.
--- NOTE | 2021-02-25 07:20 | NUR ---
RECEIVED PATIENT FROM DIGITAL COURT REPORTER NURSE FOR CONTINUITY OF CARE. PATIENT IS ON TELE MONITOR. A/A/O X4. RESPIRATORY EVEN AND UNLABORED, ON 3L OXYGEN, NO SIGN OF DISTRESS NOTED. SKIN WARM, DRY, NON DIAPHORETIC. IV ON RIGHT HAND 22G, INTACT AND PATENT, SALINE LOCK. PATIENT DENIES ANY PAIN OR DISCOMFORT. DENIES ANY SOB OR TROUBLE BREATHING. ABLE TO MAKE NEED KNOWN. PLAN OF CARE DISCUSSED, PATIENT VERBALIZED UNDERSTANDING. PRECAUTION IN PLACE. CALL LIGHT WITHIN REACH. WILL CONTINUE TO MONITOR.
[2021-02-25 08:00] VITALS: BP 104/47
[2021-02-25] MEDS: ASCORBIC ACID 500 MG TAB PO SCH (08:21)
[2021-02-25] MEDS: DEXAMETHASONE 10 MG/ML VIAL IVP SCH (08:21)
[2021-02-25] MEDS: APIXABAN 2.5 MG TAB PO SCH (08:22)
--- NOTE | 2021-02-25 08:22 | NUR ---
SCHEDULE MEDICATIONS GIVEN WITH EDUCATION, PATIENT VERBALIZED UNDERSTANDING. PATIENT TOLERATED WELL. NO SIGN OF DISTRESS NOTED. PRECAUTION IN PLACE. CALL LIGHT WITHIN REACH. WILL CONTINUE TO MONITOR.
--- NOTE | 2021-02-25 10:00 | NUR ---
PATIENT IS RESTING IN BED, NO SIGN OF DISTRESS NOTED, O2 SAT 95%. PRECAUTION IN PLACE. CALL LIGHT WITHIN REACH. WILL CONTINUE TO MONITOR.
[2021-02-25 12:00] VITALS: BP 127/61
--- NOTE | 2021-02-25 12:00 | NUR ---
PATIENT IS RESTING IN BED, VS WNL. NO SIGN OF DISTRESS NOTED. PRECAUTION IN PLACE. CALL LIGHT WITHIN REACH. WILL CONTINUE TO MONITOR.
[2021-02-25] MEDS ORDERED: APIX2.5 PO (13:04)
--- NOTE | 2021-02-25 13:48 | NUR ---
PATIENT'S DAUGHTER, TAMMI, CALLED TO UPDATE PATIENT'S CONDITION. ALL QUESTIONS WERE ANSWERED. WILL CONTINUE TO MONITOR.
--- NOTE | 2021-02-25 14:12 | NUR ---
PATIENT IS RESTING IN BED, NO SOB NOTED, O2 SAT 97% ON 3L OXYGEN VIA NC. PRECAUTION IN PLACE. CALL LIGHT WITHIN REACH. WILL CONTINUE TO MONITOR.
--- NOTE | 2021-02-25 16:11 | NUR ---
CALLED PATIENT'S DAUGHTER, TAMMI, TO CONFIRM THE ETA. THEY WILL ARRIVE AROUND 1645 PM.
--- NOTE | 2021-02-25 17:00 | NUR ---
DISCHARGE EDUCATION GIVEN, HANDOUT GIVEN. PATIENT VERBALIZED UNDERSTANDING. IV REMOVED, BLEEDING CONTROL. ID BAND REMOVED. PATIENT CONNECTS TO PORTABLE OXYGEN TANK WITH 3L. PATIENT TRANSFER TO PRIVATE VEHICLE VIA WHEELCHAIR. PATIENT IS STABLE, NO SIGN OF DISTRESS NOTED.
--- NOTE | 2021-02-25 17:10 | NUR ---
EDUCATION AND HANDOUT GIVEN TO PATIENT'S DAUGHTER. FAMILY MEMBER VERBALIZED UNDERSTANDING. PATIENT SELF TRANSFER TO VEHICLE WITHOUT ANY ACCIDENT.
[2021-03-01 08:12] LABS: LD5 FRACTION 5 % (4-20)
[2021-03-01 08:12] LABS: LD2 FRACTION 38 % (25-40); LD4 FRACTION 12 % (5-13); LD5 FRACTION 4 % (4-20)
== END 2021-02-25 17:39 | disposition home health service (06) | DRG 177 ==
LOC: MED 11:28 → MTU 15:07
PROVIDERS: ADMIT Internal Medicine; ATTEND Internal Medicine
PROC: XW033E5 Introduction of Remdesivir Anti-infective into Peripheral Vein, Percutaneous Approach, New Technology Group 5 (ICD-10-PCS; principal; 2021-02-20)
DX: U07.1 COVID-19 (principal); J18.9 Pneumonia, unspecified organism; J96.01 Acute respiratory failure with hypoxia; C90.00 Multiple myeloma not having achieved remission; J44.9 Chronic obstructive pulmonary disease, unspecified
CPT/HCPCS: 36415; 71045; 80053; 80076; 83036; 83605; 83625; 83735; 83880; 84484; 85025; 85379; 86140; 87040; 87081; 93005; 94640; 96365; 99285; J0456; J0696; J1100; J1650; J7060; Q0092; U0003

== ENCOUNTER 2021-06-15 08:52 | Emergency (ER) | payer OTHER, SELFPAY ==
[~2021-06-15] VITALS: Ht 157.5 cm; Wt 56.0 kg
[~2021-06-15 08:52] MED LIST: APIX2.5 PO; DARA15VI SQ; DEXA4TAB5 PO; POMA2CAP PO; UMEC1POW IH; [UNRECOGNIZED DRUG - REMARK]
[2021-06-15 08:56] VITALS: BP 161/90
[2021-06-15] MEDS ORDERED: KETOROLAC 60 MG/2 ML VIAL IM ONE (09:20)
[2021-06-15] MEDS ORDERED: ACETAMINOPHEN EXTRA STRENGTH 500 MG TAB PO ONE (09:20)
[2021-06-15] MEDS ORDERED: GABAPENTIN 300 MG CAP PO ONE (09:20)
--- NOTE | 2021-06-15 09:32 | NUR ---
Pt taken to x-ray via wheelchair.
--- NOTE | 2021-06-15 09:41 | NUR ---
Pt returned from x-ray to bed 11 via wheelchair.
--- NOTE | 2021-06-15 09:50 | NUR ---
70Y FEMALE C/O LEFT FOOT PAIN RADIATING TO LEFT LOWER BACK S/P A LADDER FELL ON LEFT FOOT X 2.5 WEEKS AGO. PT DENIES ANY TRAUMA, AND STATED SHE IS EXPERINCING SMALL BRUSIE AT THIS TIME. PT IS AMBUALTORY AND STILL ABLE TO MOVE TOES. PMH: MULTIPLE MELOMA, COPD, CARPAL TUNNEL RELASE
[2021-06-15] MEDS ORDERED: CYCL-711 PO (10:05)
[2021-06-15] MEDS ORDERED: ACET-10509 PO (10:05)
[2021-06-15] MEDS ORDERED: GABA300C PO (10:05)
--- NOTE | 2021-06-15 10:31 | NUR ---
Patient discharged with v/s stable. Written and verbal after care instructions given and explained. Patient alert, oriented and verbalized understanding of instructions. Ambulatory with steady gait. All questions addressed prior to discharge. ID band removed. Patient advised to follow up with PMD. Rx of ACETAMINOPHEN, FLEXERIL, AND GABAPENTIN given. Patient educated on indication of medication including possible reaction and side effects. Opportunity to ask questions provided and answered.
[2021-06-15 10:33] VITALS: BP 135/89
== END 2021-06-15 10:33 | disposition home or self-care (01) ==
LOC: MED 08:52
DX: M41.52 Other secondary scoliosis, cervical region (principal); M85.9 Disorder of bone density and structure, unspecified; J44.9 Chronic obstructive pulmonary disease, unspecified; Z79.899 Other long term (current) drug therapy; W19.XXXA Unspecified fall, initial encounter; Y93.89 Activity, other specified; Y92.89 Other specified places as the place of occurrence of the external cause; Y99.8 Other external cause status
CPT/HCPCS: 72100; 96372; 99283; J1885